=== PATIENT | female | born 1940 | race Caucasian/White ===

== ENCOUNTER → 2019-06-28 12:14 | Outpatient (CLI) | payer MEDICARE, BC ==
--- NOTE | 2019-07-02 12:18 | EC ---
PATIENT:SARAH MILIAN DATE OF SERVICE: 06/28/19 SEX: F MEDICAL RECORD: [id number] DATE OF : 40 LOCATION:D[facility] AGE OF PATIENT: 79 ADMISSION DATE: 06/28/19 REFERRING PHYSICIAN: INTERPRETING PHYSICIAN: RENATA MARIN MD ECHOCARDIOGRAM REPORT ECHO CHARGES 4 ECHO COMPLETE Date: 06/28/19 CLINICAL DIAGNOSIS: VSD REPAIR/CARDIOMYOPATHY/ ABNORMAL EKG ECHOCARDIOGRAPHIC MEASUREMENTS (adult normal given) AC root (d.<3.7cm) 3.6 cm LV Septum d (<1.2 cm> 1.3 cm Valve Excursion 1.4 cm LV Septum (systole) 1.7 cm Left Atria (s.<4.0cm> 4.1 cm LVPW d(<1.2cm) 1.2 cm RV (d.<2.3cm) 2.9 cm LVPW (sytole) 1.9 cm LV diastole(<5.6CM) 5.7 cm MV E-F(>70mm/sec) cm LV systole 4.0 cm LVOT Diameter 1.9 cm MV exc.(>10mm) cm Est.ejection fraction (50-75%) % DOPPLER: LVIT cm/sec A 111 cm/sec E 51.0 cm/sec LA cm/sec RVSP 55.3 mmHg LVOT 71.0 cm/sec AOP1/2T m/s Asc. Ao 130 cm/sec RVOT 71.0 cm/sec RA cm/sec PA 173 cm/sec AV Gradient Peak 6.7 mmHg AV Mean 4.1 mmHg AV Area 1.7 cm MV Gradient Peak 5.6 mmHg MV Mean 1.7 mmHg MV Area cm COMMENTS: OP - HC Plant Floor Automation Manager: Margaret NEUMANN KRISHNA Inspector And Adjuster [employer] Head: 3 Dr. Olmos TAPE# PACS Pericardial Effusion N DATE OF SERVICE: 06/28/2019 Adequate 2D, color flow, spectral Doppler, and M-Mode. LVH is present. LV internal dimension is normal. LV is globally hypokinetic with reduced EF, estimated EF 30% to 35%. Aortic valve sclerosis without stenosis by Doppler interrogation. Left atrium mildly dilated at 4.0 cm. Mitral valve shows no prolapse. Mild MR. Right-sided chambers are grossly normal. Trace TR. ECHOCARDIOGRAM REPORT [id number] SARAH MILIAN TRANSINT:[id number] Voice Confirmation ID: [id number] DOCUMENT ID: [id number] RENATA MARIN MD at 1218 CC: [id number] DICTATION DATE: 06/29/191455 SKEIN BLEACHER: 06/29/19 [address] [facility] CLI 06/28/19 [place] [id number] [place] [id number]
== END | disposition home or self-care (01) ==
LOC: D.HCCECHO 12:14
PROVIDERS: ATTEND Internal Medicine Interventional Cardiology
DX: I42.9 Cardiomyopathy, unspecified (principal)

== ENCOUNTER → 2019-11-19 10:25 | Outpatient (CLI) | payer MEDICARE, BC ==
--- NOTE | 2019-11-20 13:08 | EC ---
PATIENT:SARAH MILIAN DATE OF SERVICE: 11/19/19 SEX: F MEDICAL RECORD: [id number] DATE OF : 40 LOCATION:D.[facility] AGE OF PATIENT: 79 ADMISSION DATE: 11/19/19 REFERRING PHYSICIAN: INTERPRETING PHYSICIAN: RENATA MARIN MD ECHOCARDIOGRAM REPORT ECHO CHARGES 4 ECHO COMPLETE Date: 11/19/19 CLINICAL DIAGNOSIS: CARDIOMYOPATHY/VSD REPAIR,HTN ECHOCARDIOGRAPHIC MEASUREMENTS (adult normal given) AC root (d.<3.7cm) 3.7 cm LV Septum d (<1.2 cm> 1.4 cm Valve Excursion 1.7 cm LV Septum (systole) 1.6 cm Left Atria (s.<4.0cm> 5.0 cm LVPW d(<1.2cm) 1.5 cm RV (d.<2.3cm) 3.0 cm LVPW (sytole) 1.6 cm LV diastole(<5.6CM) 6.1 cm MV E-F(>70mm/sec) cm LV systole 4.7 cm LVOT Diameter 1.7 cm MV exc.(>10mm) 1.2 cm Est.ejection fraction (50-75%) % DOPPLER: LVIT cm/sec A 104.0cm/sec E 84.0 cm/sec LA cm/sec RVSP 33 mmHg LVOT 68 cm/sec AOP1/2T m/s Asc. Ao 130 cm/sec RVOT 133 cm/sec RA cm/sec PA 155 cm/sec AV Gradient Peak 6.77 mmHg AV Mean 3.73 mmHg AV Area 1.1 cm MV Gradient Peak 3.08 mmHg MV Mean 1.44 mmHg MV Area cm COMMENTS: Corporate Representative: 2 JAQUELINE HERRERA Sheet Metal Technician: 3 Dr. Olmos TAPE# PACS Pericardial Effusion N DATE OF SERVICE: Adequate 2D, color flow imaging, spectral Doppler, and M-Mode. LVH is present. LV internal dimension is normal. Septal hypokinesis consistent with postop VSD repair. Overall, function minimally reduced at 40% to 45%. No evidence of residual VSD. Aortic valve is tricuspid. No evidence of stenosis by Doppler interrogation. Left atrium is dilated at 5 cm. Mitral valve shows no prolapse. Mild MR. Right-sided chambers are grossly normal. Mild TR. ECHOCARDIOGRAM REPORT [id number] SARAH MILIAN TRANSINT:[id number] Voice Confirmation ID: [id number] DOCUMENT ID: [id number] RENATA MARIN MD at 1308 CC: [id number] DICTATION DATE: 11/20/19823 TOOTH GRINDER: 11/20/1914 [facility] CLI 11/19/19 [place] [id number] [place] [id number]
== END | disposition home or self-care (01) ==
LOC: D.HCCECHO 10:25
PROVIDERS: ATTEND Internal Medicine Interventional Cardiology
DX: I42.9 Cardiomyopathy, unspecified (principal)